=== PATIENT | male | born 1970 | race Caucasian/White ===

== ENCOUNTER 2020-11-09 00:21 | Emergency (ER) | payer BC ==
[2020-11-09 00:42] VITALS: TEMP 98.3
[2020-11-09] MEDS ORDERED: SODIUM CHLORIDE 0.9% 1,000 ML IV STA (00:54)
--- NOTE | 2020-11-09 00:54 | ED ---
Abdominal Pain HPI - General Chief Complaint: Abdominal Pain Stated Complaint: Lower abd pain Time Seen by Provider: 11/09/20 00:53 Source: patient, family, RN notes reviewed, old records reviewed Mode of arrival: ambulatory Limitations: physical limitation - History of Present Illness Initial Comments: This is a 50-year-old male DF for evaluation patient Dese for evaluation of not feeling well. Patient states she has sudden onset of severe left lower quadrant pain left flank pain. History of kidney stones. no History of colonoscopy, patient presents today for worsening of pain and symptoms of painful urination with blood in his urine. No bowel or other complaint MD Complaint: flank pain (Left) -: hour(s) Location: LLQ Radiation: L flank Migration to: LLQ, suprapubic Severity: moderate Severity scale (1-10): 7 Quality: sharp Consistency: constant Improves With: nothing (Oh) Worsens With: nothing Context: other (none) Associated Symptoms: nausea Treatments Prior to Arrival: other (None) - Related Data Allergies Allergy/AdvReac Type Severity Reaction Status Date / Time No Known Allergies Allergy Verified 11/09/20 00:42 Review of Systems ROS Statement: Those systems with pertinent positive or pertinent negative responses have been documented in the HPI. ROS Other: All systems not noted in ROS Statement are negative. Past Medical History Past Medical History: No Reported History History of Any Multi-Drug Resistant Organisms: None Reported Past Surgical History: Tonsillectomy Additional Past Surgical History / Comment(s): vasectomy Past Psychological History: No Psychological Hx Reported Smoking Status: Never smoker Past Alcohol Use History: None Reported Past Drug Use History: None Reported General Exam Limitations: physical limitation General appearance: alert, in no apparent distress Head exam: Present: atraumatic, normocephalic, normal inspection Eye exam: Present: normal appearance, PERRL, EOMI. Absent: scleral icterus, conjunctival injection, periorbital swelling ENT exam: Present: normal exam, mucous membranes moist Neck exam: Present: normal inspection. Absent: tenderness, meningismus, lymphadenopathy Respiratory exam: Present: normal lung sounds bilaterally. Absent: respiratory distress, wheezes, rales, rhonchi, stridor Cardiovascular Exam: Present: regular rate, normal rhythm, normal heart sounds. Absent: systolic murmur, diastolic murmur, rubs, gallop, clicks GI/Abdominal exam: Present: soft, normal bowel sounds. Absent: distended, tenderness, guarding, rebound, rigid Extremities exam: Present: normal inspection, full ROM, normal capillary refill. Absent: tenderness, pedal edema, joint swelling, calf tenderness Back exam: Present: normal inspection Neurological exam: Present: alert, oriented X3, CN II-XII intact Psychiatric exam: Present: normal affect, normal mood Skin exam: Present: warm, dry, intact, normal color. Absent: rash Course Vital Signs 11/09/20 00:36 Temperature 98.3 F Pulse Rate 72 Respiratory 18 Rate Blood Pressure 145/78 O2 Sat by Pulse 95 Oximetry - Reevaluation(s) Reevaluation #1: 11/09/20 01:30 Medical record is reviewed Medical Decision Making - Lab Data Result diagrams: 11/09/20 01:17 11/09/20 01:17 Lab Results 11/09/20 11/09/20 11/09/20 Range/Units 01:17 01:17 01:17 WBC 8.9 (3.8-10.6) k/uL RBC 4.79 (4.30-5.90) m/uL Hgb 15.7 (13.0-17.5) gm/dL Hct 45.0 (39.0-53.0) % MCV 93.8 (80.0-100.0) fL MCH 32.9 (25.0-35.0) pg MCHC 35.0 (31.0-37.0) g/dL RDW 12.5 (11.5-15.5) % Plt Count 204 (150-450) k/uL MPV 8.0 Neutrophils % 63 % Lymphocytes % 27 % Monocytes % 5 % Eosinophils % 3 % Basophils % 1 % Neutrophils # 5.6 (1.3-7.7) k/uL Lymphocytes # 2.4 (1.0-4.8) k/uL Monocytes # 0.5 (0-1.0) k/uL Eosinophils # 0.3 (0-0.7) k/uL Basophils # 0.1 (0-0.2) k/uL Sodium 137 (137-145) mmol/L Potassium 4.7 (3.5-5.1) mmol/L Chloride 105 (98-107) mmol/L Carbon Dioxide 24 (22-30) mmol/L Anion Gap 8 mmol/L BUN 14 (9-20) mg/dL Creatinine 0.75 (0.66-1.25) mg/dL Est GFR (CKD-EPI)AfAm >90 (>60 ml/min/1.73 sqM) Est GFR (CKD-EPI)NonAf >90 (>60 ml/min/1.73 sqM) Glucose 109 H (74-99) mg/dL Plasma Lactic Acid Farshad (0.7-2.0) mmol/L Calcium 9.3 (8.4-10.2) mg/dL Total Bilirubin 1.3 (0.2-1.3) mg/dL AST 69 H (17-59) U/L ALT 63 H (4-49) U/L Alkaline Phosphatase 77 (38-126) U/L Total Protein 6.9 (6.3-8.2) g/dL Albumin 4.2 (3.5-5.0) g/dL Amylase 165 H (30-110) U/L Lipase 459 H (23-300) U/L Urine Color Yellow Urine Appearance Clear (Clear) Urine pH 6.0 (5.0-8.0) Ur Specific [place] 1.024 (1.001-1.035) Urine Protein Negative (Negative) Urine Glucose (UA) Negative (Negative) Urine Ketones Negative (Negative) Urine Blood Small H (Negative) Urine Nitrite Negative (Negative) Urine Bilirubin Negative (Negative) Urine Urobilinogen <2.0 (<2.0) mg/dL Ur Leukocyte Esterase Negative (Negative) Urine RBC 1 (0-5) /hpf Urine WBC 1 (0-5) /hpf Urine Mucus Rare H (None) /hpf 11/09/20 Range/Units 01:17 WBC (3.8-10.6) k/uL RBC (4.30-5.90) m/uL Hgb (13.0-17.5) gm/dL Hct (39.0-53.0) % MCV (80.0-100.0) fL MCH (25.0-35.0) pg MCHC (31.0-37.0) g/dL RDW (11.5-15.5) % Plt Count (150-450) k/uL MPV Neutrophils % % Lymphocytes % % Monocytes % % Eosinophils % % Basophils % % Neutrophils # (1.3-7.7) k/uL Lymphocytes # (1.0-4.8) k/uL Monocytes # (0-1.0) k/uL Eosinophils # (0-0.7) k/uL Basophils # (0-0.2) k/uL Sodium (137-145) mmol/L Potassium (3.5-5.1) mmol/L Chloride (98-107) mmol/L Carbon Dioxide (22-30) mmol/L Anion Gap mmol/L BUN (9-20) mg/dL Creatinine (0.66-1.25) mg/dL Est GFR (CKD-EPI)AfAm (>60 ml/min/1.73 sqM) Est GFR (CKD-EPI)NonAf (>60 ml/min/1.73 sqM) Glucose (74-99) mg/dL Plasma Lactic Acid Farshad 1.1 (0.7-2.0) mmol/L Calcium (8.4-10.2) mg/dL Total Bilirubin (0.2-1.3) mg/dL AST (17-59) U/L ALT (4-49) U/L Alkaline Phosphatase (38-126) U/L Total Protein (6.3-8.2) g/dL Albumin (3.5-5.0) g/dL Amylase (30-110) U/L Lipase (23-300) U/L Urine Color Urine Appearance (Clear) Urine pH (5.0-8.0) Ur Specific [place] (1.001-1.035) Urine Protein (Negative) Urine Glucose (UA) (Negative) Urine Ketones (Negative) Urine Blood (Negative) Urine Nitrite (Negative) Urine Bilirubin (Negative) Urine Urobilinogen (<2.0) mg/dL Ur Leukocyte Esterase (Negative) Urine RBC (0-5) /hpf Urine WBC (0-5) /hpf Urine Mucus (None) /hpf Disposition Clinical Impression: Abdominal pain, Kidney stone on left side, Left ureteral calculus Disposition: HOME SELF-CARE Condition: Good Instructions (If sedation given, give patient instructions): Kidney Stones (ED) Is patient prescribed a controlled substance at d/c from ED?: No Referrals: None,Stated [Primary Care Provider] - 1-2 days
[2020-11-09] MEDS ORDERED: MORPHINE SULFATE 4 MG/ML SYRINGE IVP STA (00:59)
[2020-11-09] MEDS ORDERED: KETOROLAC 15 MG/ML 1 ML VIAL IVP STA (00:59)
[2020-11-09 01:35] LABS: Appearance,Urine Clear (Clear); Bilirubin,Urine Negative (Negative); Blood,Urine Small (Negative); Color,Urine Yellow; Glucose,Urine (UA) Negative (Negative); Ketones,Urine Negative (Negative); Leukocyte Esterase,Urine Negative (Negative); Mucus,Urine Rare /hpf; Nitrite,Urine Negative (Negative); Protein,Urine Negative (Negative); RBC,Urine 1 /hpf (0-5); Specific Gravity,Urine 1.024 (1.001-1.035); Urobilinogen,Urine <2.0 mg/dL (<2.0); WBC,Urine 1 /hpf (0-5)
[2020-11-09 01:46] LABS: Basophils # (A) 0.1 k/uL (0-0.2); Basophils % (A) 1 %; Eosinophils # (A) 0.3 k/uL (0-0.7); Eosinophils % (A) 3 %; HGB 15.7 gm/dL (13.0-17.5); Lymphocytes # (A) 2.4 k/uL (1.0-4.8); Lymphocytes % (A) 27 %; MCH 32.9 pg (25.0-35.0); MCV 93.8 fL (80.0-100.0); Monocytes # (A) 0.5 k/uL (0-1.0); Monocytes % (A) 5 %; Neutrophils # (A) 5.6 k/uL (1.3-7.7); Neutrophils % (A) 63 %; Platelet Count 204 k/uL (150-450); RBC 4.79 m/uL (4.30-5.90); RDW 12.5 % (11.5-15.5); WBC 8.9 k/uL (3.8-10.6)
[2020-11-09 02:02] LABS: ALT 63 U/L (4-49); AST 69 U/L (17-59); African American GFR (CKD) >90 (>60 ml/min/1.73 sqM); Albumin 4.2 g/dL (3.5-5.0); Alkaline Phosphatase 77 U/L (38-126); Amylase 165 U/L (30-110); Anion Gap 8 mmol/L; Blood Urea Nitrogen 14 mg/dL (9-20); Calcium 9.3 mg/dL (8.4-10.2); Carbon Dioxide 24 mmol/L (22-30); Chloride 105 mmol/L (98-107); Glucose 109 mg/dL (74-99); Lipase 459 U/L (23-300); Non-African American GFR(CKD) >90 (>60 ml/min/1.73 sqM); Potassium 4.7 mmol/L (3.5-5.1); Sodium 137 mmol/L (137-145); Total Bilirubin 1.3 mg/dL (0.2-1.3); Total Protein 6.9 g/dL (6.3-8.2)
--- NOTE | 2020-11-09 02:14 | CT ---
EXAM: CT Abdomen and Pelvis Without Intravenous Contrast CLINICAL HISTORY: ITS.REASON CT Reason: pain TECHNIQUE: Axial computed tomography images of the abdomen and pelvis without intravenous contrast. CTDI is 7.87 mGy and DLP is 428 mGy-cm. This CT exam was performed using one or more of the following dose reduction techniques: automated exposure control, adjustment of the mA and/or kV according to patient size, and/or use of iterative reconstruction technique. COMPARISON: No relevant prior studies available. FINDINGS: Limitations: Evaluation of the abdominal viscera is limited without contrast. Lung bases: Mild basilar atelectatic changes. Small right lower lobe nodule. Optional followup imaging in 12 months may be considered in a high-risk patient. ABDOMEN: Liver: Unremarkable. Gallbladder and bile ducts: Unremarkable. Pancreas: Unremarkable. Spleen: Borderline splenomegaly. Adrenals: Unremarkable. Kidneys and ureters: A 6 mm stone in the distal left ureter near the UVJ with mild left hydronephrosis and perinephric/periureteral stranding. Additional punctate nonobstructing renal calculi. Stomach and bowel: Areas of small and large bowel wall thickening or underdistention. Mildly thickened underdistended stomach also noted. Stool-filled right colon. PELVIS: Appendix: Normal caliber appendix. Bladder: Mildly thickened underdistended bladder. Reproductive: Unremarkable as visualized. ABDOMEN and PELVIS: Intraperitoneal space: No free air. Bones/joints: Degenerative changes. Small lucent focus in right ilium. Correlate with history of malignancy. Soft tissues: Small fat-containing umbilical and right inguinal hernia. Vasculature: Atherosclerotic disease. Lymph nodes: Unremarkable. IMPRESSION: 1. A 6 mm stone in the distal left ureter near the UVJ with mild left hydronephrosis and perinephric/periureteral stranding. Mildly thickened underdistended bladder. 2. Areas of small and large bowel wall thickening or underdistention. Correlate clinically regarding enterocolitis. 3. Additional findings, as above.
[2020-11-09] MEDS ORDERED: Acetaminophen-Codeine 300-30mg TAB PO STA (02:56)
[2020-11-09] MEDS ORDERED: TAMSULOSIN 0.4 MG CAP.ER.24H PO STA (02:56)
[2020-11-09] MEDS ORDERED: IBUPROFEN 600 MG STARTER PACK 4 TAB BTL PO STA (02:56)
[2020-11-09] MEDS ORDERED: ACET/COD 300 MG/30 MG STARTER PACK 6 TAB BTL PO STA (02:56)
[2020-11-09 03:25] VITALS: BP 129/64; PULSE 66; RESP 16
== END 2020-11-09 03:24 | disposition home or self-care (01) ==
LOC: EC 00:21
DX: N13.2 Hydronephrosis with renal and ureteral calculous obstruction (principal)
CPT/HCPCS: 36415; 80053; 82150; 83605; 83690; 85025; 81001; 74176; 99284; 96374; 96375; 96361; J2270; J1885

== ENCOUNTER 2020-11-23 10:32 | Day surgery (SDC) | payer BC ==
[2020-11-19 16:08] VITALS: BMI 23.6
--- NOTE | 2020-11-22 11:39 | P.HPIHPCON ---
History of Present Illness H&P Date: 11/22/20 Chief Complaint: Left-sided ureteral stone This is a 50-year-old male with history of a 6 mm left-sided ureteral stone, he is symptomatic secondary to stone. CT also showed multiple nonobstructive stones on the left side. Discussed with him surgical option, he agreed to p roceed with left-sided ureteroscopy. Discussed the risk which includes but not limited to bleeding, infection, injury to the ureter. Discussed risk from anesthesia with him. He understood all the risk and agreed to proceed with left-sided ureteroscopy, holmium laser lithotripsy, stone basketing and stent placement Consent for Procedure: I have explained the operation/procedure to the patient, including the risks, benefits, side effects, alternative therapies (including not receiving the proposed treatment or service), the likelihood of the patient achieving his/her goals, and potential recuperation problems for the procedure/sedation/analgesia, as well as any blood products, if indicated. I also explained to the patient the risks, benefits and side effects of the alternatives, as well as the risks related to not receiving the proposed procedure, care, treatment, or services. Past Medical History Past Medical History: No Reported History Additional Past Medical History / Comment(s): Current left kidney stones. History of Any Multi-Drug Resistant Organisms: None Reported Past Surgical History: Tonsillectomy Additional Past Surgical History / Comment(s): Vasectomy. Past Anesthesia/Blood Transfusion Reactions: No Reported Reaction Past Psychological History: No Psychological Hx Reported Smoking Status: Former smoker Past Alcohol Use History: Occasional Additional Past Alcohol Use History / Comment(s): Quit smoking 8 yrs ago. Past Drug Use History: None Reported - Past Family History Mother Family Medical History: No Reported History Medications and Allergies Home Medications Medication Instructions Recorded Confirmed Type Acetaminophen-Codeine 300-30mg 1 tab PO Q6H PRN 11/19/20 11/19/20 History [Tylenol w/codeine #3] Ketorolac [Toradol] 10 mg PO Q6HR PRN 11/19/20 11/19/20 History Allergies Allergy/AdvReac Type Severity Reaction Status Date / Time No Known Allergies Allergy Verified 11/19/20 15:58 Surgical - Exam - General well developed, well nourished, no distress, moderate pain - Eyes PERRL, normal ocular movement - ENT normal nares, normal mucosa - Respiratory normal expansion, normal respiratory effort - Abdomen Abdomen: soft, non tender - Psychiatric oriented to time, oriented to person, oriented to place Assessment and Plan Assessment: 50-year-old male with history of left-sided ureteral stone OR for left -sided ureteroscopy, with holmium laser lithotripsy, stone basketing and stent placement
[~2020-11-23 10:32] MED LIST: LACTATED RINGERS 1,000 ML IV SCH; ONDANSETRON 4 MG/2 ML VIAL IVP ONE; fentaNYL (PF) 50 MCG/ML 2 ML AMP IV PRN
--- NOTE | 2020-11-23 11:04 | XR ---
EXAMINATION TYPE: XR KUB DATE OF EXAM: 11/23/2020 Comparison: 11/09/2020 Clinical History: 50 year-old male left renal calculus , preop for surgery. Findings: Punctate left renal calculi seen on the patient's recent CT are not well visualized radiographically. 6 mm elongated calcification in the left side of the pelvis. Likely at the UVJ. Right-sided pelvic p hlebolith. Nonobstructive bowel gas pattern. Possible second subtle 3 mm calcification left paramedia n mid abdomen. Mild stool in the right side of the abdomen. Impression: 1. 6 mm distal left ureteral calculus, probably at the UVJ. 2. A subtle 3 mm density left paramedian mid to lower abdomen may be a second calcification in the le ft ureter now.
[2020-11-23] MEDS ORDERED: SUCCINYLCHOLINE CHLORIDE 100 MG/5 ML SYR IV ONE (13:04)
[2020-11-23] MEDS ORDERED: LIDOCAINE 1% INJ 10MG/ML (20 ML MDV) ONE (13:04)
[2020-11-23] MEDS ORDERED: MIDAZOLAM 2 MG/2 ML VIAL ONE (13:04)
[2020-11-23] MEDS ORDERED: ONDANSETRON 4 MG/2 ML VIAL ONE (13:04)
[2020-11-23] MEDS ORDERED: PROPOFOL 10 MG/ML 20 ML VIAL IV ONE (13:04)
[2020-11-23] MEDS ORDERED: fentaNYL (PF) 50 MCG/ML 2 ML AMP ONE (13:04)
[2020-11-23] MEDS ORDERED: LACTATED RINGERS 1,000 ML IV ONE (13:51)
--- NOTE | 2020-11-23 14:09 | P.OP ---
Date of Procedure: 11/23/20 Preoperative Diagnosis: Left ureteral stone, renal stone Postoperative Diagnosis: Same Procedure(s) Performed: Cystoscopy, left ureteroscopy, holmium laser lithotripsy, stone basketing and stent placement Implants: 6-[place]ib[place] by 26 cm stent left on a string Anesthesia: JAZ Surgeon: Sixto Lui Estimated Blood Loss (ml): 1 Pathology: other (Left ureteral stone) Condition: stable Disposition: PACU Indications for Procedure: This is a 50-year-old male with history of a 6 mm left-sided ureteral stone, he is symptomatic secondary to stone. CT also showed multiple nonobstructive stones on the left side. Discussed with him surgical option, he agreed to proceed with left-sided ureteroscopy. Discussed the risk which includes but not limited to bleeding, infection, injury to the ureter. Discussed risk from anesthesia with him. He understood all the risk and agreed to proceed with left-sided ureteroscopy, holmium laser lithotripsy, stone basketing and stent placement Operative Findings: Left distal ureteral stone, additional stone up in the mid calyx Description of Procedure: Patient was brought to the operating room, general anesthesia was induced. He was prepped and draped in sterile fashion and placed in dorsal lithotomy position. A cystoscopy fitted with a 21-[place]ib[place]ian sheath was inserted per urethra, cystoscopy was performed which showed no abnormality within the bladder. At thi s time a sensor wire was advanced through the scope and up the left ureteral orifice. Next a semirigid ureteroscope was inserted through the urethra and up the left ureteral orifice, a stone was visualized in the distal ureter. Using the holmium laser the stone was fragmented into small fragments, fragments were removed using stone basket. At this time the scope was advanced all the way up to the UPJ, no additional stones were visualized. Pullback ureteroscopy was performed which showed no residual fragments or injury to the ureter. Next a flexible ureteroscope was passed over the wire under fluoroscopy into the kidney. Renoscopy was performed which showed a stone in the mid calyx, the stone was dusted using the holmium laser. Repeat renoscopy showed no additional stones or injury to the kidney. Pullback ureteroscopy was performed which showed no injury to ureter or any residual fragments. Next a ureteral stent was passed over the wire, the proximal curl was falguni was on fluoroscopy and the distal curl was visualized using the cystoscope. Stent was left on a string and taped to the patient penis. The patient tolerated the procedure well was taken to PACU in stable condition
[2020-11-23 14:15] VITALS: TEMP 97.3
[2020-11-23] MEDS: HYDROmorphone 0.5 MG/0.5 ML SYRINGE IVP PRN ×2 (14:26→14:45)
[2020-11-23] MEDS ORDERED: KETOROLAC 15 MG/ML 1 ML VIAL IVP ONE (14:27)
--- NOTE | 2020-11-23 15:08 | FL ---
EXAMINATION TYPE: FL guidance operating room DATE OF EXAM: 11/23/2020 FLUOROSCOPY Fluoroscopy time of 23 seconds was used during cystoscopy and lithotripsy. 2 image/s document/s the procedure.
[2020-11-23 15:15] VITALS: RESP 20
[2020-11-23] MEDS ORDERED: IBUPROFEN 200 MG TAB PO ONE ×2 (15:20→15:35)
[2020-11-23 15:59] VITALS: BP 142/90; PULSE 60
== END 2020-11-23 16:03 | disposition home or self-care (01) ==
LOC: OR 10:32
PROVIDERS: ATTEND Urology
DX: N20.2 Calculus of kidney with calculus of ureter (principal); Z90.89 Acquired absence of other organs; Z98.52 Vasectomy status; Z87.891 Personal history of nicotine dependence
CPT/HCPCS: 82365; 74018; 52356; C2625; C1769; J2250; J0690; J2405; J2001; J3010; J1885; J0330; J2704; J1170